=== PATIENT | female | born 1985 | race Hispanic/Latino ===

== ENCOUNTER 2018-07-26 05:30 | Inpatient (IN) | payer MEDICAID, OTHER, SELFPAY ==
[2018-07-26] MEDS ORDERED: Acetaminophen 500 MG TAB PO PRN (06:26)
[2018-07-26] MEDS ORDERED: Promethazine HCl 25 MG/ML VIAL IM PRN (06:26)
[2018-07-26] MEDS ORDERED: Lactated Ringer's 1,000 ML IV SCH (06:26)
[2018-07-26] MEDS ORDERED: Ondansetron PF 4 MG/2 ML Vial IVP PRN ×2 (06:26→19:30)
[2018-07-26] MEDS ORDERED: NS w/ Oxytocin 10 units 500 ML IVPB SCH (06:30)
[2018-07-26] MEDS ORDERED: Penicillin G Potassium 5 MILL.UNITS in Sodium Chloride 0.9% 100 ML IVPB SCH (06:30)
[2018-07-26 06:35] VITALS: BMI 41.9
[2018-07-26] MEDS: Lactated Ringer's 1,000 ML IV SCH ×2 (07:15→14:39)
[2018-07-26] MEDS ORDERED: Penicillin G Potassium 5 MILL.UNITS VIAL ONE (07:15)
[2018-07-26 07:41] LABS: Hemoglobin 13.3 g/dL (12.0-16.0); Mean Corpuscular HGB CONC 32.5 g/dL (32.0-36.0); Mean Corpuscular Volume 86.1 fL (78.0-98.0); Mean Platelet Volume 10.5 fL (7.4-10.4); Platelet Count 138 thou/uL (130-400); RBC Distribution Width 13.2 % (11.5-14.5); Red Blood Cell (RBC) Count 4.74 mill/uL (4.20-5.40); White Blood Cell (WBC) Count 6.5 thou/uL (4.8-10.8)
[2018-07-26 08:17] LABS: HBSAg Index 0.17 S/CO (0-0.99); Hep B Surf Ag Non-Reactive S/CO (NonReactive); Syphilis Antibody Nonreactive (Nonreactive); Syphilis Antibody Index 0.03 S/CO (<1.00 Non-Reactive)
[2018-07-26] MEDS ORDERED: Lidocaine 2% MPF 10 ML AMP (For Epidural Use) ONE (08:36)
[2018-07-26] MEDS ORDERED: Bupivacaine/Epinephrine 0.25% 30 ML VIAL ONE (08:36)
[2018-07-26] MEDS: Penicillin G 2.5 MILL.units 2.5 MILL.UNITS in Premix Bag 1 BAG IVPB SCH ×2 (11:35→15:30)
[2018-07-26] MEDS ORDERED: Fentanyl 4 mcg/Bup 0.1% Cadd 100 ML ONE (13:59)
[2018-07-26] MEDS ORDERED: Eucerin (Mineral Oil/Petrolatum,White) 30 gm Jar TOP PRN (14:44)
[2018-07-26] MEDS ORDERED: Lactated Ringer's 500 ML IV PRN (14:44)
[2018-07-26] MEDS ORDERED: Naloxone HCl 0.4 mg/ml Vial IVP PRN ×2 (14:44)
[2018-07-26] MEDS ORDERED: ePHEDrine/0.9% NaCl/PF SYRINGE 50 mg/10 ml SLOW IVP PRN (14:44)
[2018-07-26] MEDS ORDERED: Fentanyl 4 mcg/Bupivacaine 0.1% Cassette 100 ML EPIDURAL SCH (14:45)
[2018-07-26] MEDS ORDERED: Communication Order-Pharmacy FS SCH (14:45)
[2018-07-26] MEDS ORDERED: NS / Oxytocin 40 units/1000ml 1,000 ML ONE ×2 (16:54→20:55)
[2018-07-26 19:10] LABS: Actual Bicarbonate (HCO3a) 21.5 mEq/L (22-28); Base Excess (BEa) -7.9 mEq/L (-2.0 to +3.0)
[2018-07-26 19:11] LABS: Actual Bicarbonate (HCO3v) 19 mEq/L (22-28); Base Excess -7.5 mEq/L (-2.0 to +3.0); pH (Cord, venous) 7.27 (7.32-7.43)
[2018-07-26] MEDS ORDERED: Preparation H Ointment 28 GM TUBE PR PRN (19:30)
[2018-07-26] MEDS ORDERED: Benzocaine/Menthol 20-0.5% 60 ML CAN TOP PRN (19:30)
[2018-07-26] MEDS ORDERED: Lanolin Ointment 7 GM TUBE TOP PRN (19:30)
[2018-07-26] MEDS ORDERED: Milk Of Magnesia 30 ML UDCUP PO PRN (19:30)
[2018-07-26] MEDS ORDERED: Bisacodyl 10 MG SUPP PR PRN (19:30)
[2018-07-26] MEDS ORDERED: NS / Oxytocin 40 units/1000ml 1,000 ML IV SCH (19:30)
[2018-07-26] MEDS ORDERED: HYDROcodone/Acetaminophen 5/325 mg Tablet PO PRN (19:30)
[2018-07-26] MEDS ORDERED: diphenhydrAMINE 25 MG CAP PO PRN (19:30)
[2018-07-26] MEDS: Docusate Calcium (SURFAK) 240 MG CAP PO SCH (21:31)
[2018-07-26] MEDS: Ibuprofen 800 MG TAB PO SCH (21:31)
[2018-07-27] MEDS: Ibuprofen 800 MG TAB PO SCH ×3 (05:50→21:59)
[2018-07-27] MEDS: Penicillin G 2.5 MILL.units 2.5 MILL.UNITS in Premix Bag 1 BAG IVPB SCH ×2 (07:40→07:41)
[2018-07-27] MEDS: Ferrous Sulfate 325 MG TAB PO SCH ×2 (07:41→13:55)
[2018-07-27] MEDS: Prenatal Vitamin 1 TAB PO SCH (08:46)
[2018-07-27] MEDS: Docusate Calcium (SURFAK) 240 MG CAP PO SCH ×2 (08:46→21:59)
[2018-07-27] MEDS: HYDROcodone/Acetaminophen 5/325 mg Tablet PO PRN ×2 (08:53→14:30)
[2018-07-27] MEDS ORDERED: Adacel (T-DAP) 0.5 ML VIAL IM ONE (09:00)
[2018-07-28] MEDS: Ibuprofen 800 MG TAB PO SCH ×2 (05:10→13:17)
[2018-07-28] MEDS: HYDROcodone/Acetaminophen 5/325 mg Tablet PO PRN ×3 (05:10→13:17)
[2018-07-28 08:05] VITALS: BP 95/51; TEMP 98.1
[2018-07-28] MEDS: Ferrous Sulfate 325 MG TAB PO SCH (09:05)
[2018-07-28] MEDS: Prenatal Vitamin 1 TAB PO SCH (09:11)
[2018-07-28] MEDS: Docusate Calcium (SURFAK) 240 MG CAP PO SCH (09:11)
== END 2018-07-28 15:30 | disposition home or self-care (01) | DRG 807 ==
LOC: L&D 05:57 → 3SW 21:50
PROVIDERS: ADMIT Obstetrics & Gynecology; ATTEND Obstetrics & Gynecology
PROC: 10D07Z6 Extraction of Products of Conception, Vacuum, Via Natural or Artificial Opening (ICD-10-PCS; principal; 2018-07-26)
PROC: 10907ZC Drainage of Amniotic Fluid, Therapeutic from Products of Conception, Via Natural or Artificial Opening (ICD-10-PCS; 2018-07-26)
DX: O48.0 Post-term pregnancy (principal); Z37.0 Single live birth; Z3A.40 40 weeks gestation of pregnancy; O36.63X0 Maternal care for excessive fetal growth, third trimester, not applicable or unspecified; O99.824 Streptococcus B carrier state complicating childbirth; O76 Abnormality in fetal heart rate and rhythm complicating labor and delivery; O75.81 Maternal exhaustion complicating labor and delivery; O70.1 Second degree perineal laceration during delivery
CPT/HCPCS: 51702; 82805; 85027; 86780; 86850; 86900; 86901; 87340; J2001; J2540; J7050